=== PATIENT | male | born 1975 | race Caucasian/White ===

== ENCOUNTER 2018-10-23 18:20 | Emergency (ER) | payer BC, OTHER ==
[~2018-10-23] VITALS: Ht 157.5 cm; Wt 67.1 kg
[2018-10-23] MEDS ORDERED: diphenhydrAMINE 50 MG/ML INJ (BENADRYL) IM ONE (19:45)
[2018-10-23] MEDS ORDERED: methylPREDNISolone 40 MG/ML (DEPO MEDROL) VIAL IM ONE (19:45)
--- NOTE | 2018-10-23 20:18 | ED Integumentary General ---
General Chief Complaint: Skin/Wound Problems Stated Complaint: RASH Nursing Triage Note: pt presents to er with complaint of rash on arms, legs, and trunk. pt states it started on his arm two months ago and has progressively worsened. pt states he had a viral illness a few weeks ago. Source: patient Exam Limitations: no limitations History of Present Illness Date Seen by Provider: Oct 23, 2018 Time Seen by Provider: 19:45 Initial Comments rash Allergies and Home Medications Allergies Coded Allergies: Penicillins (Verified Allergy, Unknown, 10/23/18) Past Bbtbeaw-Kvwotm-Vtbflc Hx Patient Social History Alcohol Use: Denies Use Recreational Drug Use: No Smoking Status: Current Everyday Smoker Type Used: Cigarettes Recent Foreign Travel: No Contact w/Someone Who Travel: No Recent Infectious Disease Expo: No Immunizations Up To Date Tetanus Booster (TDap): Less than 5yrs PED Vaccines UTD: Yes Seasonal Allergies Seasonal Allergies: Yes Past Medical History Surgeries: Yes (right femur jack) Respiratory: No Cardiac: No Neurological: No Genitourinary: No Gastrointestinal: No Musculoskeletal: No Endocrine: No HEENT: No Cancer: No Psychosocial: No Integumentary: No Physical Exam Vital Signs Vital Signs - First Documented 10/23/18 19:23 Temp 98.2 Pulse 76 Resp 17 B/P (MAP) 104/78 (87) Pulse Ox 99 O2 Delivery Room Air Capillary Refill : Less Than 3 Seconds Progress/Results/Core Measures Results/Orders My Orders Orders - PAUL HAM Diphenhydramine Injection (Benadryl Inje (10/23/18 19:45) Methylprednisolone Acetate Inj (Depo-Med (10/23/18 19:45) Vital Signs/I&O 10/23/18 19:23 Temp 98.2 Pulse 76 Resp 17 B/P (MAP) 104/78 (87) Pulse Ox 99 O2 Delivery Room Air Blood Pressure Mean: 87 Departure Impression Primary Impression: Contact dermatitis Disposition: 01 HOME, SELF-CARE Condition: Stable Departure-Patient Inst. Decision time for Depature: 20:15 Referrals: NO,LOCAL PHYSICIAN (PCP/Family) Primary Care Physician Patient Instructions: Contact Dermatitis (DC) Add. Discharge Instructions: You may continue to use Benadryl 25-50 mg every 4-6 hours for itching. He may also use topical hydrocortisone cream and Benadryl cream to rash areas. Follow- up with her primary care provider within the week for recheck. Return back to the emergency room for worsening symptoms or concerns as needed. All discharge instructions reviewed with patient and/or family. Voiced understanding. PAUL HAM Oct 23, 2018 20:18
[2018-10-23 20:23] VITALS: BP 104/78
== END 2018-10-23 20:23 | disposition home or self-care (01) ==
LOC: ER 18:22
DX: L25.9 Unspecified contact dermatitis, unspecified cause (principal); F17.210 Nicotine dependence, cigarettes, uncomplicated; Z88.0 Allergy status to penicillin
CPT/HCPCS: 99284

== ENCOUNTER 2019-07-17 23:10 | Emergency (ER) | payer SELFPAY ==
[~2019-07-17] VITALS: Ht 172.7 cm; Wt 67.3 kg
[2019-07-17] MEDS ORDERED: TETRACAINE 0.5% OPHTH SOLN 4 ML BTL (SINGLE DOSE ONLY) OU ONE (23:15)
[2019-07-17] MEDS ORDERED: FLUORESCEIN (FLUOR-I-STRIPS) 1 MG STRP OU ONE (23:15)
--- NOTE | 2019-07-17 23:30 | ED EENT ---
History of Present Illness General Chief Complaint: Eye Problems Stated Complaint: RT EYE FOREIGN OBJECT Source: patient, family Exam Limitations: no limitations History of Present Illness Date Seen by Provider: Jul 17, 2019 Time Seen by Provider: 23:15 Initial Comments Patient presents ER by private conveyance from work with chief complaint that he has some feeling of foreign body and there lateral side of his right eye. Itching foreign body sensation redness watering. This started while he was at work about an hour prior to arrival. He has not use any medicines for it. He does not wear glasses or contacts. 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 No discharge from the eye. He works at a [employer] Allergies and Home Medications Allergies Coded Allergies: Penicillins (Verified Allergy, Unknown, 10/23/18) Patient Home Medication List Home Medication List Reviewed: Yes Review of Systems Review of Systems Constitutional: No chills, No fever Eyes: See HPI Ears: Denies Dizziness, Denies Pain Nose: denies clots, denies congestion Mouth: denies clots, denies loose teeth Throat: denies pain, denies swelling Past Vkzuyiu-Tofame-Xrxdjz Hx Patient Social History Recreational Drug Use: No Smoking Status: Current Everyday Smoker Type Used: Cigarettes Recent Foreign Travel: No Immunizations Up To Date Tetanus Booster (TDap): Less than 5yrs PED Vaccines UTD: Yes Seasonal Allergies Seasonal Allergies: Yes Past Medical History Surgeries: Yes (right femur jack) Respiratory: No Cardiac: No Neurological: No Genitourinary: No Gastrointestinal: No Musculoskeletal: No Endocrine: No HEENT: No Cancer: No Psychosocial: No Integumentary: No Physical Exam Height, Weight, BMI Height: 5'2.00" Weight: 148lbs. oz. 67.029135oo; BMI Method:Stated General Appearance: WD/WN, mild distress Eyes: right eye other (mild right eye erythema and surrounding soft tissues with watering); left eye normal inspection; bilateral eye PERRL, bilateral eye EOMI Ears: bilateral ear auricle normal, bilateral ear canal normal Nose: normal inspection; No active bleeding Mouth/Throat: normal mouth inspection, pharynx normal Cardiovascular: normal peripheral pulses, regular rate, rhythm Respiratory: no respiratory distress, no accessory muscle use Progress/Results/Core Measures Results/Orders My Orders Orders - XAVIER CRAWFORD Tetracaine 0.5% Ophth Sara Sdv (Tetracai (07/17/19 23:15) Fluorescein Strips (Mclnl-O-Rrekih) (07/17/19 23:15) Medications Given in ED Current Medications Medications Dose Ordered Sig/Hammad Route Start Time Stop Time Status Last Admin Dose Admin Fluorescein Sodium 1 mg ONCE ONCE OU 07/17/19 23:15 07/17/19 23:16 DC 07/17/19 23:22 1 MG Tetracaine HCl 4 ml ONCE ONCE OU 07/17/19 23:15 07/17/19 23:16 DC 07/17/19 23:21 4 ML Progress Progress Note : Time: 23:27 Progress Note No foreign body revealed on forcing staining. Tetracaine brought his pain down to 1 out of 10. Plan to put him on tobramycin and follow up with Dr. Lee's outpatient on Friday, 2 days from now. Visual acuity testin/30 left, 20/70 right, 20/40 combined. Departure Impression Primary Impression: Corneal abrasion Qualified Codes: S05.01XA - Injury of conjunctiva and corneal abrasion without foreign body, right eye, initial encounter Disposition: HOME, SELF-CARE Condition: Stable Departure-Patient Inst. Decision time for Depature: 23:29 Referrals: NO,LOCAL PHYSICIAN (PCP/Family) Primary Care Physician Patient Instructions: Corneal Abrasion (DC) Add. Discharge Instructions: Keep your hands and face clean. Do not rub your eye. If you have itching you may use Benadryl or Claritin. For pain you may use 1000 mg Tylenol every 8 hours and/or ibuprofen 800 mg every 8 hours. Tobramycin drops 2 drops the right eye every 4 hours while awake. Follow-up with optometry Friday morning by calling for an appointment. Dr Lee [address] [place] [address] Invest in a decent repair of protective eyeglasses. All discharge instructions reviewed with patient and/or family. Voiced understanding. Work/School Note: Work Release Form Date Seen in the Emergency Department: Jul 17, 2019 Return to Work: Jul 18, 2019 Restrictions: No Restrictions XAVIER CRAWFORD Jul 17, 2019 23:30 POS
[2019-07-17] MEDS ORDERED: RX-TOBRAMYCIN 0.3% OPHTH (TOBREX) SOLN 5 ML BTL OP STA (23:33)
[2019-07-17 23:44] VITALS: BP 136/98
== END 2019-07-17 23:44 | disposition home or self-care (01) ==
LOC: EDUNIT# 23:10 → ER FS 23:11
DX: S05.01XA Injury of conjunctiva and corneal abrasion without foreign body, right eye, initial encounter (principal); F17.210 Nicotine dependence, cigarettes, uncomplicated; Z88.0 Allergy status to penicillin; X58.XXXA Exposure to other specified factors, initial encounter; Y92.59 Other trade areas as the place of occurrence of the external cause
CPT/HCPCS: 99283

== ENCOUNTER 2019-11-23 20:10 | Emergency (ER) | payer BC, OTHER ==
[~2019-11-23] VITALS: Ht 175 cm; Wt 63.5 kg
[2019-11-23] MEDS ORDERED: ORPHENADRINE 60 MG/2 ML (NORFLEX) AMP IM ONE (20:45)
[2019-11-23] MEDS ORDERED: KETOROLAC 60 MG/2 ML VIAL IM ONE (20:45)
[2019-11-23] MEDS ORDERED: METH-313 PO (20:47)
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
--- NOTE | 2019-11-23 21:09 | Diagnostic Imaging Report ---
INDICATION: Right thigh pain FINDINGS: Two views of the right hip including the femur demonstrate previous internal fixation jack in the femur with fracture well healed. Moderate amount of heterotopic bone formation is seen around the fracture site. No acute findings are present. IMPRESSION: There is a moderate amount of heterotopic bone formation at the fracture site which is well-healed. Dictated by: Dictated on workstation # [id number]
[2019-11-23 21:35] VITALS: BP 123/95
--- OUTSIDE RECORDS SUMMARY | 2019-11-25 23:03 | XMS REPORT | Continuity of Care Document ---
Author Organization Unknown Address Unknown Phone Unavailable Allergies Active Description Code Type Severity Reaction Onset Reported/Identified Relationship to Patient Clinical Status Yes Penicillins [id number] Drug Aller gy Unknown N/A 10/23/2018 Medications There is no data. Problems Date Dx Coded Attending Type Code Diagnosis Diagnosed By 10/23/2018 PAUL HAM Ot F17.210 NICOTINE DEPENDENCE, CIGARETTES, UNCOMPL 10/23/2018 PAUL HAM Ot L25.9 UNSPECIFIED CONTACT DERMATITIS, UNSPECIF 10/23/2018 PAUL HAM Ot R21 RASH AND OTHER NONSPECIFIC SKIN ERUPTION 10/23/2018 PAUL HAM Ot Z88.0 ALLERGY STATUS TO PENICILLIN 07/17/2019 XAVIER CRAWFORD MD Ot F17.210 NICOTINE DEPENDENCE, CIGARETTES, UNCOMPL 07/17/2019 XAVIER CRAWFORD MD Ot H57. 89 OTHER SPECIFIED DISORDERS OF EYE AND ADN 07/17/2019 XAVIER CRAWFORD MD Ot S05.01XA INJ CONJUNCTIVA AND CORNEAL ABRASION W/O 07/17/2019 XAVIER CRAWFORD MD Ot X58.XXXA EXPOSURE TO OTHER SPECIFIED FACTORS, INI 07/17/2019 XAVIER CRAWFORD MD Ot Y92. [address] 07/17/2019 XAVIER CRAWFORD MD Ot Z88. 0 ALLERGY STATUS TO PENICILLIN 07/22/2019 XAVIER CRAWFORD MD Ot F17.210 NICOTINE DEPENDENCE, CIGARETTES, UNCOMPL 07/22/2019 XAVIER CRAWFORD MD Ot H57. 89 OTHER SPECIFIED DISORDERS OF EYE AND ADN 07/22/2019 XAVIER CRAWFORD MD Ot S05.01XA INJ CONJUNCTIVA AND CORNEAL ABRASION W/O 07/22/2019 XAVIER CRAWFORD MD Ot X58.XXXA EXPOSURE TO OTHER SPECIFIED FACTORS, INI 07/22/2019 XAVIER CRAWFORD MD Ot Y92. [address] 07/22/2019 XAVIER CRAWFORD MD Ot Z88. 0 ALLERGY STATUS TO PENICILLIN Procedures There is no data. Results There is no data. Encounters ACCT No. Visit Date/Time Discharge Status Pt. Type Provider Facility Loc./Unit Complaint [id number] 03/30/2019 14:20:00 03/30/2019 23:59:5 9 CLS Outpatient JONNY ESPARZA [facility] [id number] 11/23/2019 20:12:00 020 21:37:00 DIS Emergency DARON MAYNARD APRN [facility] ER RIGHT LEG PAIN [id number] 07/17/2019 23:11:00 019 23:44:00 DIS Emergency XAVIER CRAWFORD MD [facility] ER FS RT EYE FOREIGN OBJECT [id number] 10/23/2018 18:22:00 019 20:23:00 DIS Emergency PAUL HAM [facility] ER RASH
== END 2019-11-23 21:37 | disposition home or self-care (01) ==
LOC: EDUNIT# 20:10 → ER 20:12
DX: G57.01 Lesion of sciatic nerve, right lower limb (principal); F17.210 Nicotine dependence, cigarettes, uncomplicated; Z88.0 Allergy status to penicillin
CPT/HCPCS: 73502